=== PATIENT | male | born 1995 | race Caucasian/White ===

== ENCOUNTER → 2017-01-28 16:10 | Emergency (ER) | payer SELFPAY ==
[~2017-01-28 16:10] MED LIST: Lidocaine 2% EPI 1:200000 MPF* 20 ML VIAL INJ ONE; Tetan/Diph/Pertus SYR(Tdap)* 0.5 ML SYR(BOOSTRIX) use SYR IM ONE
[2017-01-28 16:15] VITALS: BP 130/76
--- NOTE | 2017-01-28 16:32 | ED ---
Laceration/Wound HPI - HPI Summary HPI Summary: 21M presents with laceration to left croft. [place] and landed on a pipe. He does not know when his last tetanus was. He states that he was running when it occurred and was able to run back to a car. He denies any numbness or tingling. The bleeding is currently controlled. - History of Current Complaint Stated Complaint: LT LEG LAC Time Seen by Provider: 01/28/17 16:17 Pain Intensity: 5 - Allergy/Home Medications Allergies/Adverse Reactions: Allergies Allergy/AdvReac Type Severity Reaction Status Date / Time No Known Allergies Allergy Verified 01/28/17 16:15 PMH/Surg Hx/FS Hx/Imm Hx Endocrine/Hematology History: Denies: Hx Anticoagulant Therapy Cardiovascular History: Denies: Hx Hypertension Infectious Disease History: No Infectious Disease History: Denies: Traveled Outside the [place] in Last 30 Days - Family History Known Family History: Negative: Cardiac Disease Review of Systems Negative: Fever Negative: Chest Pain Negative: Shortness Of Breath Positive: Other - laceration leg left All Other Systems Reviewed And Are Negative: Yes Physical Exam Triage Information Reviewed: Yes Vital Signs On Initial Exam: Initial Vitals Temp Pulse Resp BP Pulse Ox 98.7 F 62 16 130/76 100 01/28/17 16:12 01/28/17 16:12 01/28/17 16:12 01/28/17 16:12 01/28/17 16:12 Vital Signs Reviewed: Yes Appearance: Positive: Well-Appearing Skin: Positive: Warm, Dry, Other - 4cm by 3cm by 1 cm on left leg Head/Face: Positive: Normal Head/Face Inspection Eyes: Positive: Normal, Conjunctiva Clear Respiratory/Lung Sounds: Positive: Clear to Auscultation, Breath Sounds Present Cardiovascular: Positive: Normal, RRR Musculoskeletal: Positive: Strength/ROM Intact - left leg, Other - good pulses Procedures - Laceration/Wound Repair 1 Location: Other - left leg pain Description: Linear Anesthesia: Local, 1.0%, Epi Length, Depth and Shape: 4cm by 3cm by 1 cm Betadine Prep?: Yes Irrigated w/ Saline (ccs): 1,000 Laceration/Wound Explored: no foreign body removed Closure: SteriStrips, Multilayer Suture Type: Prolene - 4-0, Chromic - 4-0 Number of Sutures: 6 Layer Closure?: Yes - 2 deep, 4 vertical mattress Sterile Dressing Applied?: Yes - steristrips, telfa, kilo Diagnostics - Vital Signs Vital Signs Temp Pulse Resp BP Pulse Ox 01/28/17 16:12 98.7 F 62 16 130/76 100 - Laboratory Lab Statement: Any lab studies that have been ordered have been reviewed, and results considered in the medical decision making process. Laceration Repair Course/Dx - Course Course Of Treatment: 21M presents with laceration to left croft. [place] and landed on a pipe. He does not know when his last tetanus was. He states that he was running when it occurred and was able to run back to a car. He denies any numbness or tingling. The bleeding is currently controlled. 4cm by 3cm by 1 cm on left leg. extensively irrigated wound and placed 2 deep absorbable and 4 vertical mattress. covered with steristrips. gave tetanus. explained is going to scar. patient understands and agrees with plan. - Differential Dx Differental Diagnoses: Abrasion, Avulsion, Laceration - Clinical Impression Provider Diagnoses: Laceration of left leg Discharge - Discharge Plan Condition: Good Disposition: HOME Patient Education Materials: Care For Your Stitches (ED) Referrals: [facility] - Ed DAVIS [Primary Care Provider] - Additional Instructions: Take Tylenol or ibuprofen for pain Keep area clean and dry for 48 hours Return to ED,urgent care or primary in 10-14 days to have sutures removed Return to ED if develop signs of infection such as fever, spreading redness, or pus.
== END | disposition home or self-care (01) ==
LOC: ED 16:10
DX: S81.812A Laceration without foreign body, left lower leg, initial encounter (principal); W01.0XXA Fall on same level from slipping, tripping and stumbling without subsequent striking against object, initial encounter; Y93.9 Activity, unspecified; Y92.9 Unspecified place or not applicable
CPT/HCPCS: 12002; 90715; 96372; 99282